=== PATIENT | female | born 1980 | race Caucasian/White ===

== ENCOUNTER → 2019-11-05 15:16 | Outpatient (BNVA) | payer OTHER, SELFPAY | PROVIDERS: Family Provider Family Medicine; Visit Provider Otolaryngology | DX: E04.1 Nontoxic single thyroid nodule (principal) | CPT/HCPCS: 99213; 99214 ==

== ENCOUNTER → 2019-11-22 07:51 | Outpatient (BNVA) | payer OTHER, SELFPAY | PROVIDERS: Family Provider Family Medicine; PCP Family Medicine; Referring Provider Family Medicine; Visit Provider Specialist | DX: G56.01 Carpal tunnel syndrome, right upper limb (principal); R20.0 Anesthesia of skin; R29.90 Unspecified symptoms and signs involving the nervous system | CPT/HCPCS: 95910 ==

== ENCOUNTER 2019-12-06 09:04 | Day surgery (SDC) | payer OTHER, SELFPAY ==
[2019-12-05 10:39] VITALS: BMI 31.1
[2019-12-06] VITALS (13 sets, daily range): BP systolic 139–157; BP diastolic 83–105; PULSE 87–105; RESP 16–20; TEMP 36.3–37.2; O2SAT 90–100
[2019-12-06] MEDS: sodium chloride 0.9% 1,000 ML 30 ML IV (09:40)
--- NOTE | 2019-12-06 10:11 | ANES.PREANE2 ---
Pre-Anesthetic Assessment Pre-Anesthetic Assessment: Height/Weight: Height 1.83 m Weight 104.326 kg Temp Pulse Resp BP Pulse Ox 97.3 F L 88 18 142/97 98 12/06/19 09:20 12/06/19 09:20 12/06/19 09:20 12/06/19 09:20 12/06/19 09:20 Preop Diagnosis: Thyroid mass Proposed Procedure: Operation Date: 12/06/19 11:00 Proposed Procedures p Thyroid Lobectomy 6020 E04.1(Not Applicable) - Finn Huynh MD Last intake: Intake Last Liquid Date 12/05/19 Last Liquid Time 20:00 Last Solid Date 12/05/19 Last Solid Time 20:00 Social: Social History: Alcohol (occ) and Tobacco (quit) Exam: Pre-Anes Outpt Exam: alert, oriented x 3, clear to auscultation bilaterally and regular rate & rhythm Airway: Submandibular: WNL Cervical ROM: WNL MP: 2 Dentition: Other (poor dentation) History/ROS: No significant history except as noted Pulmonary: Pulmonary: None reported CV/HEM: CV/HEM: None reported : : None reported Hepatic: Hepatic: None reported GI: GI: GERD (occ) Metabolic: Metabolic: None reported Musc/skel: Musc/skel: Lower Back Pain and OA/DJD Neuropsych: Neuropsych: Anxiety and Depression Anesthetic Plan: ASA status: 2 Anesthesia: Anesthesia Evaluation and General Risk of > 500 ml blood loss (7ml/kg in children): No Meds/Allergies Current Medications: Current Medications Generic Name Dose Route Start Last Admin Trade Name Freq PRN Reason Stop Dose Admin Sodium Chloride 1,000 mls @ 30 ml s/hr 12/06/19 08:30 12/06/19 09:40 Sodium Chloride 0.9% IV 12/07/19 08:29 30 mls/hr .Q24H YENY Administration PFSH Anesthesia PFSH: Medical History Arthritis Degenerative disc disease FH: cholecystectomy Surgical History History of ankle surgery Family History Other Cancer Dementia Diabetes Lung disease Social History Smoking and tobacco status: former smoker Alcohol intake: current Alcohol intake frequency: few times a month Data Anesthesia Cardiac Studies: No Data to Display
--- NOTE | 2019-12-06 10:37 | W.PM.OPSUD ---
Surgery/Procedure H&P Update DATE OF PROCEDURE: December 06, 2019 DATE H&P PERFORMED: 11/05/19 H&P UPDATE INFORMATION: I have reviewed H&P completed within last 30 days and No changes to prior documentation PREOP DIAGNOSIS: Thyroid mass PLANNED PROCEDURE: Operation Date: 12/06/19 11:00 Proposed Procedures p Thyroid Lobectomy 6020 E04.1(Not Applicable) - Finn Huynh MD
--- NOTE | 2019-12-06 10:39 | PM.OP ---
Operative Report Date of procedure: December 06, 2019 Pre-op Diagnosis: Thyroid mass Post-op Findings: Same Procedure Done: Right thyroid lobectomy Specimens removed/disposition: Right thyroid lobectomy Surgeon: Finn Huynh Anesthesia: General Condition: stable Disposition: PACU Brief History: Torrie is a 39-year-old female with a right thyroid nodule the goals risks and alternatives were reviewed with the patient and per the patient's preference informed consent was obtained to proceed with surgical treatment. Procedure: The patient was taken to the operating room under satisfactory general endotracheal anesthesia the neck was prepped draped and injected. A 1.5 cm incision was made in a relaxed skin tension line over the isthmus. Dissection was carried down through the anterior layer of deep cervical fascia identifying the strap musculature which was retracted laterally. The isthmus was divided that using the superior thyroid vascular pedicle was divided and inferiorly the recurrent laryngeal nerve was identified and preserved. The parathyroids were identified and preserved. The middle thyroid vein was ligated. The lobe was removed and sent for histopathologic analysis. Hemostasis was obtained throughout with combination of bipolar and Harmonic scalpel. Mary was placed in the wound bed the patient tolerated procedure well and the wound was closed in layers interrupted fashion using 4-0 Vicryl and 5-0 Vicryl. A dressing was applied the patient tolerated procedure well and was allowed awaken taken recovery where she was observed. During her observation time postoperative care instructions and counseling including detailed written and verbal instruction given to the patient and the patient's . Once both parties verbalized understanding of all instructions and once the patient met discharge criteria she was discharged in satisfactory and stable condition end of dictation.
[2019-12-06] MEDS: neomycin-poly-bacitracin oint 28 gm 1 APPLIC TOPICAL (11:59)
[2019-12-06] MEDS: fentaNYL 50 mcg/mL INJ 2mL IVP ×2 (12:20→12:25)
[2019-12-06] MEDS: morphine 4 mg/mL SDV 1 mL 2 MG IVP ×4 (12:28→12:42)
== END 2019-12-06 13:25 | disposition home or self-care (01) ==
PROVIDERS: Family Provider Family Medicine; PCP Family Medicine; Visit Provider Otolaryngology
PROC: (CPT 60220; principal; 2019-12-06 11:00)
DX: E04.1 Nontoxic single thyroid nodule (principal); Z82.49 Family history of ischemic heart disease and other diseases of the circulatory system; Z83.3 Family history of diabetes mellitus; Z87.891 Personal history of nicotine dependence; K21.9 Gastro-esophageal reflux disease without esophagitis; M19.90 Unspecified osteoarthritis, unspecified site
CPT/HCPCS: 60220; 12345; 81025; 88307; 96374; J1100; J2001; J2250; J2270; J2405; J2704; J2710; J3010; J3490; J7030

== ENCOUNTER → 2019-12-07 08:11 | Outpatient (BNVA) | payer OTHER, SELFPAY | PROVIDERS: Family Provider Family Medicine; PCP Family Medicine; Visit Provider Otolaryngology | DX: Z48.89 Encounter for other specified surgical aftercare (principal); E04.1 Nontoxic single thyroid nodule | CPT/HCPCS: 99024 ==

== ENCOUNTER → 2019-12-11 10:52 | Outpatient (BNVA) | payer OTHER, SELFPAY | PROVIDERS: Family Provider Family Medicine; PCP Family Medicine; Visit Provider Otolaryngology | DX: E04.1 Nontoxic single thyroid nodule (principal) | CPT/HCPCS: 99024 ==

== ENCOUNTER → 2019-12-20 11:10 | Outpatient (BNVA) | payer OTHER, SELFPAY | PROVIDERS: Family Provider Family Medicine; PCP Family Medicine; Visit Provider Otolaryngology | DX: R47.02 Dysphasia (principal); R05 Cough; R49.0 Dysphonia; Z90.09 Acquired absence of other part of head and neck | CPT/HCPCS: 31575; 99214 ==

== ENCOUNTER → 2020-01-03 11:07 | Outpatient (BNVA) | payer OTHER, SELFPAY | PROVIDERS: Family Provider Family Medicine; PCP Family Medicine; Visit Provider Otolaryngology | DX: J38.00 Paralysis of vocal cords and larynx, unspecified (principal); R05 Cough; Z90.09 Acquired absence of other part of head and neck | CPT/HCPCS: 31575; 96372; 99214; J3301 ==

== ENCOUNTER 2020-07-03 17:23 | Outpatient (CLI) | payer OTHER, SELFPAY ==
--- NOTE | 2020-07-03 17:29 | XRR_ITS ---
PROCEDURE INFORMATION: Exam: XR Lumbosacral Spine, 2 or 3 Views Exam date and time: 07/03/2020 6:15 PM Age: 39 years old Clinical indication: Low back pain; Prior surgery; Surgery type: Lumbar; Additional info: Back pain thoracic region, lumbar radiculopathy TECHNIQUE: Imaging protocol: XR of the lumbosacral spine, 2 or 3 views. COMPARISON: No relevant prior studies available. FINDINGS: Vertebrae: Degenerative change, vacuum disc, and mild scoliosis. Anatomic alignment. Soft tissues: Right-sided surgical clips. Gastrointestinal tract: Prominent stool. Organs: IUD. XR/XR lumbar spine 2-3V* [id number] IMPRESSION: Degenerative change, vacuum disc, and mild scoliosis.
--- NOTE | 2020-07-03 17:29 | XRR_ITS ---
PROCEDURE INFORMATION: Exam: XR Thoracic Spine, 3 Views Exam date and time: 07/03/2020 6:15 PM Age: 39 years old Clinical indication: Pain in thoracic spine; Prior surgery; Surgery type: Lumbar; Additional info: Back pain thoracic region, lumbar radiculopathy TECHNIQUE: Imaging protocol: XR of the thoracic spine, 3 views. COMPARISON: No relevant prior studies available. FINDINGS: Vertebrae: No acute osseous pathology in the visualized thoracic spine with incomplete visualization of the inferior thoracic spine on the lateral views. Soft tissues: Normal caliber of the paraspinous soft tissues. XR/XR thoracic spine 3V* [id number] IMPRESSION: No acute osseous pathology in the visualized thoracic spine with incomplete visualization of the inferior thoracic spine on the lateral views.
--- NOTE | 2020-07-03 17:29 | XRR_ITS ---
PROCEDURE INFORMATION: Exam: XR Soft Tissue Neck Exam date and time: 07/03/2020 6:00 PM Age: 39 years old Clinical indication: Other: Dyspnea; Prior surgery; Surgery type: Thyroid removal TECHNIQUE: Imaging protocol: XR of the soft tissues of the neck. COMPARISON: CT Cervical Spine wo* [id number] 04/06/2019 8:09 PM FINDINGS: Airway: No abnormal narrowing. Soft tissues: Unremarkable. Bones/joints: Unremarkable. XR/XR soft tissue neck [id number] IMPRESSION: No acute findings.
== END 2020-07-03 17:24 | disposition home or self-care (01) ==
PROVIDERS: Visit Provider Family Medicine
DX: R06.00 Dyspnea, unspecified (principal); M54.6 Pain in thoracic spine; M54.16 Radiculopathy, lumbar region; E89.0 Postprocedural hypothyroidism
CPT/HCPCS: 70360; 72072; 72100

== ENCOUNTER 2020-07-30 16:25 | Outpatient (CLI) | payer OTHER, SELFPAY ==
--- NOTE | 2020-07-30 16:38 | MR_ITS ---
WS: [id number] MRI LUMBAR SPINE NONCONTRAST HISTORY: LEFT LUMBAR RADICULOPATHY COMPARISON: None available. TECHNIQUE: Sagittal and axial multisequence imaging is submitted. Mild LEFT convex curvature lower lumbar spine. Posterior alignment is normal. Increased T1 and T2 sig nal in the endplates of L4 and L5. There is a small amount of edema in the adjacent endplates of L1 a nd L2 which may be due to Schmorl's nodes. Mild disc space narrowing and desiccation throughout the lumbar spine. Conus terminates normally at L1. L1-L2: Mild annular disc bulging with a shallow LEFT paracentral disc protrusion. No stenosis. L2-L3: Mild annular disc bulging and osteophytic ridging. Moderate size LEFT paracentral disc protrus ion contacting the L3 nerve root in the subarticular recess. L3-L4: Mild annular disc bulging and ligamentum flavum hypertrophy. No stenosis. L4-L5: Mild annular disc bulging with facet and ligamentum flavum hypertrophy. There is mild narrowin g of the central canal with mild encroachment into the lateral recesses. L5-S1: Mild annular disc bulging and osteophytic ridging. No contact on the nerve roots or stenosis. Small amount of free fluid in the cul-de-sac. RIGHT ovarian cyst 2.7 cm. MR/MR lumbar spine wo con* [id number] IMPRESSION: 1. Mild spondylitic changes in the lumbar spine. Most significant degenerative changes at L4-5 and L5-S1. 2. Moderate size LEFT paracentral disc protrusion at L2-3 with mild contact on the L3 nerve root. 3. Mild central stenosis with mild encroachment upon the lateral recesses at L 4-5. 4. No high-grade stenosis.
== END 2020-07-30 16:26 | disposition home or self-care (01) ==
LOC: RADSHAW 16:29
PROVIDERS: PCP Family Medicine; Visit Provider Family Medicine
DX: M54.16 Radiculopathy, lumbar region (principal); M51.26 Other intervertebral disc displacement, lumbar region; M48.061 Spinal stenosis, lumbar region without neurogenic claudication
CPT/HCPCS: 72148

== ENCOUNTER 2020-09-30 11:02 | Emergency (ER) | payer OTHER, SELFPAY ==
[2020-09-30 11:02] VITALS: BP 148/102; PULSE 107; RESP 18; TEMP 36; O2SAT 97; BMI 31.4
[2020-09-30 11:08] VITALS: BP 138/83; PULSE 78; RESP 18; O2SAT 94
--- NOTE | 2020-09-30 11:09 | ED_ITS ---
HPI - Back Pain/Injury General: Chief Complaint: Back Pain/Injury Stated Complaint: BACK PAIN Time Seen by Provider: 09/30/20 11:05 Source: patient Mode of arrival: ambulatory Limitations: no limitations History of Present Illness: HPI Narrative: 32-year-old female states she was lifting her dog yesterday and strained her lower back. She has had years of chronic back pain and is getting a stimulator placed in October. She states that it worsened overnight and radiates down her left leg. She denies any difficulty walking denies any bowel or bladder incontinence. Is improved with rest and worsened with movement. MD elicited complaint: back pain Onset (ago): day(s) Associated symptoms: Deny abdominal pain, chills, dysuria, fever(s), nausea or vomiting Review of Systems Const: Denies: fever(s), chills, body aches or change in appetite Eyes: Denies: blurry vision or eye discomfort ENMT: Denies: throat pain or dental pain Card: Denies: chest pain Resp: Denies: dyspnea GI: Denies: abdominal pain, nausea, vomiting or diarrhea : Denies: dysuria Musc: Reports: back pain Skin/Breast: Denies: rash Neuro: Denies: headache(s) Psych: Denies: depression Elvis/Lymph: Denies: easy bruising All/Imm: Denies: urticaria PFSH ED PFSH: Medical History Arthritis Carpal tunnel syndrome Cough Cubital tunnel syndrome Degenerative disc disease Dysphasia Dysphonia FH: cholecystectomy Vocal cord paresis Surgical History History of ankle surgery History of lobectomy of thyroid Family History Other Cancer Dementia Diabetes Lung disease Social History Smoking and tobacco status: former smoker Alcohol intake: current Alcohol intake frequency: few times a month Physical Exam Const: COMMON NORMALS: no acute distress, patient oriented x3 and healthy appearing HENMT: COMMON NORMALS: normocephalic and atraumatic HEAD & SCALP: normocephalic and atraumatic Eye: COMMON NORMALS: Equal, round and reactive pupils present and EOMs intact bilaterally PUPIL: Yes Equal, round and reactive pupils present Neck/C-Spine: COMMON NORMALS: full ROM and supple Chest: COMMONS NORMALS: normal inspection of the chest and normal palpation of entire chest wall Resp: COMMON NORMALS: normal respiratory effort, No retractions, No use of accessory muscles and clear to auscultation bilaterally AUSCULTATION: clear to auscultation bilaterally Cardio: COMMON NORMALS: regular rate, regular rhythm and No murmurs present (Cardio) RATE: regular rate RHYTHM: regular rhythm GI: COMMON NORMALS: Normal to inspection, nondistended, normoactive bowel sounds present, Soft to palpation, non-tender and no masses PALPATION: Yes Soft to palpation Back/Pelvis: OTHER: No midline tenderness. No saddle anesthesia. Does have left lower back tenderness Extremity: COMMON NORMALS: normal to inspection and full ROM Neuro: COMMON NORMALS: patient oriented x3, moves all extremities and no focal motor deficits Psych: COMMON NORMALS: mental status grossly normal, Normal thought process present and cooperative THOUGHT PROCESS: Normal thought process present Skin: COMMON NORMALS: no rashes or lesions noted and no wounds GENERAL SKIN EXAM: no rashes or lesions noted Course Vital Signs: Vital signs: Vital Signs Temperature 96.8 F L 09/30/20 11:02 Pulse Rate 107 H 09/30/20 11:02 Respiratory Rate 18 09/30/20 11:02 Blood Pressure 148/102 09/30/20 11:02 Pulse Oximetry 97 09/30/20 11:02 MDM - Back Pain/Injury MDM Narrative: Medical decision making narrative: Patient presents with low back strain. She has no signs of cord compression or epidural abscess. Will prescribe her Naprosyn along with Robaxin gave her instructions to ice and rest. She is to follow-up with her PCP and return if worsening. Discharge Plan Discharge Patient Disposition: Home Clinical Impression: Strain of lumbar region Qualifiers: Encounter type: initial encounter Qualified Code(s): S39.012A - Strain of muscle, fascia and tendon of lower back, initial encounter Condition: Stable Prescriptions: New Robaxin-750 750 mg tablet 750 mg PO Q6H Qty: 30 RF: 0 Naprosyn 500 mg tablet 500 mg PO BID PRN (Reason: pain) Qty: 20 RF: 0 No Action fluoxetine [Prozac] 20 mg capsule 20 mg PO QDAY RF: 0 meloxicam 7.5 mg tablet 7.5 mg PO DAILY Qty: 90 RF: 0 Discharge Orders: Discharge ED (Routine); Ordered 09/30/20 Ordered By: Sergio Blackburn Referrals: Hakeem Briggs MD [Primary Care Provider] - Discharge Diet: Advance as tolerated Discharge Activity: Resume usual activity Patient Instructions: Low Back Strain (ED) Coding Level of Care Code ED [employer] Machine Operator for Naveed Dominique
[2020-09-30] MEDS: HYDROcodone-acetaminophen 7.5-325 mg Tablet 1 TAB PO (11:15)
[2020-09-30] MEDS: dexamethasone 4 mg/mL INJ 10 MG IM (11:18)
[2020-09-30 11:35] VITALS: BP 138/83; PULSE 78; RESP 18; O2SAT 94
== END 2020-09-30 11:44 | disposition home or self-care (01) ==
PROVIDERS: Emergency Provider Emergency Medicine; PCP Family Medicine
DX: S39.012A Strain of muscle, fascia and tendon of lower back, initial encounter (principal); Z87.891 Personal history of nicotine dependence; X50.0XXA Overexertion from strenuous movement or load, initial encounter
CPT/HCPCS: 12345; 96372; 99281; 99283; J1100

== ENCOUNTER → 2023-09-02 11:35 | Outpatient (BNVA) | payer BC, SELFPAY | PROVIDERS: PCP Family Medicine; Visit Provider Clinical Nurse Specialist Adult Health | DX: F32.9 Major depressive disorder, single episode, unspecified (principal); N95.9 Unspecified menopausal and perimenopausal disorder | CPT/HCPCS: 81025; 84436; 84443; 84481 ==